=== PATIENT | female | born 1975 | race Caucasian/White ===

== ENCOUNTER 2016-12-18 19:58 | Emergency (ER) | payer OTHER ==
[2016-12-18 21:05] VITALS: BP 148/96
[2016-12-18] MEDS ORDERED: HYDROcodone/ACETAMIN 5-325 MG* 1 TAB PO ONE (22:44)
--- NOTE | 2016-12-18 22:47 | UC ---
Knee Pain HPI - HPI Summary HPI Summary: twisted right knee while skating tiffanie mcmullen tonight - History of Current Complaint Chief Complaint: EDExtremityLower Stated Complaint: KNEE INJURY Time Seen by Provider: 12/18/16 22:37 Hx Obtained From: Patient Hx Last Menstrual Period: IUD ?: No Onset/Duration: Sudden Onset, Lasting Hours, Still Present Severity Initially: Moderate Severity Currently: Moderate Location Of Injury: right knee medial pain Pain Intensity: 5 Pain Scale Used: 0-10 Numeric Character: Aching, Throbbing Aggravating Factor(s): Movement, Weight Bearing Alleviating Factor(s): Rest, Position, Cold Associated Signs And Symptoms: Positive: Negative Able to Bear Weight: Yes - was able to skate off the track - Allergies/Home Medications Allergies/Adverse Reactions: Allergies Allergy/AdvReac Type Severity Reaction Status Date / Time No Known Allergies Allergy Verified 12/01/15 16:02 PMH/Surg Hx/FS Hx/Imm Hx Previously Healthy: Yes - Surgical History Surgical History: Yes Surgery Procedure, Year, and Place: LT KNEE ARTHROSCOPIC (MENISCUS REPAIR). VAGINAL TEAR REPAIR. 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 Lives: With Family Alcohol Use: Occasionally Alcohol Amount: Every couple of weeks Substance Use Type: None Smoking Status (MU): Never Smoked Tobacco Review of Systems Constitutional: Negative Skin: Negative Eyes: Negative ENT: Negative Respiratory: Negative Cardiovascular: Negative Gastrointestinal: Negative Genitourinary: Negative Motor: Negative Neurovascular: Negative Musculoskeletal: Arthralgia - right knee medial pain Neurological: Negative Psychological: Negative All Other Systems Reviewed And Are Negative: Yes Physical Exam Triage Information Reviewed: Yes Appearance: Well-Appearing, Pain Distress, Obese Vital Signs: Initial Vital Signs Temp 99.1 F 12/18/16 20:15 Pulse 104 12/18/16 20:15 Resp 20 12/18/16 20:15 BP 149/91 12/18/16 20:15 Pulse Ox 96 12/18/16 20:15 Vital Signs Reviewed: Yes Eye Exam: Normal Eyes: Positive: Conjunctiva Clear ENT Exam: Normal ENT: Positive: Normal ENT inspection, Hearing grossly normal, Pharynx normal, TMs normal. Negative: Nasal congestion, Nasal drainage, Tonsillar swelling, Tonsillar exudate, Trismus, Muffled/hoarse voice Dental Exam: Normal Neck exam: Normal Neck: Positive: Supple, Nontender, No Lymphadenopathy Respiratory Exam: Normal Respiratory: Positive: Chest non-tender, No respiratory distress, No accessory muscle use Cardiovascular Exam: Normal Cardiovascular: Positive: RRR, Pulses Normal, Brisk Capillary Refill Musculoskeletal Exam: Normal Musculoskeletal: Positive: No Edema, Strength Limited @ - right knee, ROM Limited @ Neurological Exam: Normal Neurological: Positive: Alert, Muscle Tone Normal Psychological Exam: Normal Skin Exam: Normal Diagnostics - Radiology No standard instances Xray Interpretation: No Acute Changes Radiology Interpretation Completed By: ED Physician Knee Pain Course/Dx - Course Course Of Treatment: rice, luma, knee immoblizer, crutches, rice, pain control follow with ortho this week - Differential Dx/Diagnosis Differential Diagnosis/HQI/PQRI: Contusion, Fracture (Closed), Internal Derangement Of Knee, Sprain, Strain Provider Diagnoses: Right knee internal derangement Discharge - Discharge Plan Condition: Stable Disposition: HOME Prescriptions: Hydrocodone-Acetaminophen [Hydrocodone/Acetaminophen 5-325 mg] 1 tab PO Q6H PRN #12 tab MDD 4 PRN Reason: Pain Ibuprofen TAB* [Motrin TAB* 600 MG] 600 mg PO Q6H PRN #40 tab PRN Reason: pain Patient Education Materials: Knee Sprain (ED), Crutch Instructions (ED), DASH Eating Plan (ED), Hypertension (ED), RICE Therapy (ED), Knee Immobilizer (ED), Non Weight Bearing Activity (ED) Forms: *Work Release Referrals: [facility] [Provider Group] - 3 Days Susy Schneider MD [Primary Care Provider] - 2 Weeks
--- NOTE | 2016-12-19 08:59 | RAD ---
Indication: Right knee pain. 4 views of the right knee demonstrates no fracture or dislocation. No other bone or joint abnormality is noted. IMPRESSION: No fracture of the right knee is noted.
--- NOTE | 2016-12-19 22:57 | ED ---
Progress - Progress Note Progress Note: Patient called requested her work not includes the instructions for non-weight bearing light duty until cleared by ortho---This was done and faxed to her employer at [phone] Course/Dx - Course Course Of Treatment: dianelys, luma, knee immoblizer, crutches, rice, pain control follow with ortho this week - Diagnoses Provider Diagnoses: Internal derangement of knee
== END 2016-12-18 23:22 | disposition home or self-care (01) ==
LOC: ED 19:58
DX: M23.91 Unspecified internal derangement of right knee (principal)
CPT/HCPCS: 36415; 86703; 99282

== ENCOUNTER 2016-12-29 22:47 | Emergency (ER) | payer OTHER ==
[2016-12-30] MEDS ORDERED: Ibuprofen TAB* 800 MG PO ONE (01:45)
[2016-12-30] MEDS ORDERED: oxyCODONE/Acetamin 5/325 MG* TAB PO ONE (01:45)
--- NOTE | 2016-12-30 01:59 | ED ---
Lower Extremity - HPI Summary HPI Summary: Pt here w/ acute on chronic Rt knee pain. Was seen here last week after a rollerderby injury. Was seen in f/u w/ Dr. Sweet - dx'd w/ sprain and had an MRI - results reveal ACL tear. Pt has been wearing her immobilizer a times but mostly an PATRICK wrap as she reports it's been feeling a little better. Has been taking ibuprofen but needs another dose tonight. Tried vicodin w/o relief - better relief w/ percocet. Denies numbness, tingling, weakness. Pain was along medial aspect and behind knee when she initially injured. Tonight she has pain over front of knee as well. 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 - History of Current Complaint Chief Complaint: EDExtremityLower Stated Complaint: FALL/KNEE INJURY Time Seen by Provider: 12/30/16 01:38 Hx Obtained From: Patient Hx Last Menstrual Period: IUD Pain Intensity: 8 - Allergies/Home Medications Allergies/Adverse Reactions: Allergies Allergy/AdvReac Type Severity Reaction Status Date / Time No Known Allergies Allergy Verified 12/24/16 15:30 PMH/Surg Hx/FS Hx/Imm Hx Previously Healthy: Yes Endocrine/Hematology History: Denies: Hx Anticoagulant Therapy, Hx Blood Disorders, Hx Diabetes Cardiovascular History: Denies: Hx Hypertension, Hx Pacemaker/ICD History: Denies: Hx Renal Disease Sensory History: Denies: Hx Hearing Aid Psychiatric History: Denies: Hx Panic Disorder - Surgical History Surgery Procedure, Year, and Place: LT KNEE ARTHROSCOPIC (MENISCUS REPAIR). VAGINAL TEAR REPAIR. 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 [employer] Alcohol Use: Occasionally Alcohol Amount: Every couple of weeks Hx Substance Use: No Substance Use Type: Reports: None Hx Tobacco Use: No Smoking Status (MU): Never Smoked Tobacco Review of Systems Positive: no symptoms reported Musculoskeletal: Other - see HPI Skin: Negative Neurological: Negative Psychological: Normal All Other Systems Reviewed And Are Negative: Yes Physical Exam Triage Information Reviewed: Yes Vital Signs On Initial Exam: Initial Vitals Temp Pulse Resp BP Pulse Ox 98.8 F 81 20 166/100 96 12/29/16 22:50 12/29/16 22:50 12/29/16 22:50 12/29/16 22:50 12/29/16 22:50 Vital Signs Reviewed: Yes Appearance: Positive: Well-Appearing, Well-Nourished, Pain Distress Skin: Positive: Warm, Dry - no ecchymosis or erythema over affected area Head/Face: Positive: Normal Head/Face Inspection Eyes: Positive: EOMI ENT: Positive: Hearing grossly normal Respiratory/Lung Sounds: Positive: Breath Sounds Present Cardiovascular: Positive: Pulses are Symmetrical in both Upper and Lower Extremities. Negative: Leg Edema Left, Leg Edema Right Musculoskeletal: Positive: Limited @ - Rt knee limited ROM d/t pain - knee is TTP in general - moving ankle well but also elicits pain in knee; no gross laxity but exam limited d/t pain and awareness of pt's condition Neurological: Positive: Normal, Sensory/Motor Intact, Alert, Oriented to Person Place, Time Psychiatric: Positive: Normal Diagnostics - Vital Signs Vital Signs Temp Pulse Resp BP Pulse Ox 12/30/16 00:24 98.8 F 81 16 162/98 96 12/29/16 22:50 98.8 F 81 20 166/100 96 - Laboratory Lab Statement: Any lab studies that have been ordered have been reviewed, and results considered in the medical decision making process. Lower Extremity Course/Dx - Course Course Of Treatment: No XR performed as pt has known ACL tear here and mechanism of injury tonight is not indicative of fx or dislocation. Advised to wear brace at all times, non-weight bearing and f/u w/ Kee. If danger s/sx present, return to ED - Diagnoses Provider Diagnoses: Right ACL tear Discharge - Discharge Plan Condition: Stable Disposition: HOME Prescriptions: Ibuprofen TAB* [Motrin TAB* 600 MG] 600 mg PO Q6H PRN #40 tab PRN Reason: pain oxyCODONE/Acetamin 5/325 MG* [Percocet 5/325 TAB*] 1 tab PO Q6H PRN #20 tab MDD 4 PRN Reason: Pain Patient Education Materials: Knee Sprain (ED), Crutch Instructions (ED), ACL Injury (ED), Knee Immobilizer (ED) Referrals: Khurram Sweet MD [Medical Doctor] - Additional Instructions: You appear to have exacerbated your previous knee sprain/ligament tear. It is important that you wear your knee immobilizer and use crutches to avoid reinjury. You may remove immobilizer to gently stretch areas in a controlled environment. Rest, ice, elevate Ibuprofen 800mg every 8 hours with food for pain, swelling. Take percocet every 6 hours for break through pain. Follow-up with Dr. Sweet as directed. Call tomorrow to update about new injury in the event he wants to move you into a sooner appointment. *If you develop numbness, tingling, weakness, return to ED
[2016-12-30 02:11] VITALS: BP 165/109
== END 2016-12-30 02:19 | disposition home or self-care (01) ==
LOC: ED 22:47
DX: S83.511A Sprain of anterior cruciate ligament of right knee, initial encounter (principal); X58.XXXD Exposure to other specified factors, subsequent encounter; Y92.9 Unspecified place or not applicable
CPT/HCPCS: 99282; A9270-GY

== ENCOUNTER 2017-02-11 06:17 | Day surgery (SDC) | payer OTHER ==
[~2017-02-11 06:17] MED LIST: Buffered Lidocaine 0.9% SYRIN* 5 ML/SYR SYRINGE INTRADERM ONE; Famotidine IV* 10 MG/ML 2 ML (20 mg) IV ONE
[2017-02-11] MEDS ORDERED: Famotidine IV* 10 MG/ML 2 ML (20 mg) ONE (06:40)
[2017-02-11] MEDS ORDERED: Buffered Lidocaine 0.9% SYRIN* 5 ML/SYR SYRINGE ONE (06:40)
[2017-02-11] MEDS ORDERED: ceFAZolin 2 GM PREMIX (*) 50 ML IVPB ONE (06:40)
[2017-02-11] MEDS ORDERED: EPINEPHrine AMP 1 MG/ML ONE ×2 (07:09→07:16)
[2017-02-11] MEDS ORDERED: Bupivacaine 0.5% SDV PF* 30 ML VIAL ONE (07:10)
[2017-02-11] MEDS ORDERED: Midazolam* 1 MG/ML 5 ML VIAL (5 MG) ONE (07:11)
[2017-02-11] MEDS ORDERED: fentaNYL* 50 MCG/ML 2 ML VIAL (100 MCG VIAL) ONE ×2 (07:11→11:14)
[2017-02-11] MEDS ORDERED: KETAMINE HCL* 50 MG/ML 10 ML VIAL ONE (07:11)
[2017-02-11] MEDS ORDERED: Morphine INJ* 10 MG/ML 1 ML CARPUJECT ONE ×2 (07:44→11:14)
[2017-02-11] MEDS ORDERED: PROCHLORPERAZINE INJ 5 MG/ML 2 ML VIAL ONE ×2 (07:45→13:10)
[2017-02-11] MEDS ORDERED: Ondansetron INJ* 2 MG/ML VIAL ONE (07:45)
[2017-02-11] MEDS ORDERED: Phenylephrine INJ* 10 MG/ML 1 ML VIAL (10 MG) ONE (07:45)
[2017-02-11] MEDS ORDERED: Propofol* 10 MG/ML 20 ML BTL IV PUSH ONE (07:45)
[2017-02-11] MEDS ORDERED: Ketorolac INJ* 30 MG/ML 1 ML VIAL ONE (07:45)
[2017-02-11] MEDS ORDERED: Lidocaine 2% PF * 5 ML VIAL ONE (07:45)
[2017-02-11] MEDS ORDERED: Dexamethasone IV* 4 MG/ML 1 ML (4 MG) ONE (07:45)
[2017-02-11] MEDS ORDERED: EPHEDrine (Pressors)* 50 MG/ML VIAL ONE (07:59)
[2017-02-11] MEDS ORDERED: PROCHLORPERAZINE INJ 5 MG/ML 2 ML VIAL IV PRN (11:06)
[2017-02-11] MEDS ORDERED: Scopolamine 1.5 mg* PATCH TRANSDERM PRN (11:06)
[2017-02-11] MEDS ORDERED: oxyCODONE/Acetamin 5/325 MG* TAB ONE (11:14)
[2017-02-11] MEDS: Morphine INJ* 2 MG/ML 1 ML CARPUJECT IV PRN ×3 (11:22→12:25)
[2017-02-11] MEDS: fentaNYL* 50 MCG/ML 2 ML VIAL (100 MCG VIAL) IV PRN ×4 (11:23→13:13)
[2017-02-11] MEDS: oxyCODONE/Acetamin 5/325 MG* TAB PO PRN ×2 (11:23→11:25)
[2017-02-11] MEDS ORDERED: Scopolamine 1.5 mg* PATCH ONE (13:10)
[2017-02-11 15:34] VITALS: BP 130/87
--- NOTE | 2017-02-12 10:32 | OP ---
OPERATIVE REPORT: DATE OF OPERATION: 02/11/17 DATE OF : 73 SURGEON: Jarett Cárdenas MD. INSURANCE BROKER: VIRY Rene. A physician web assistant was required for the length of the procedure for retraction and instrumentation. ANESTHESIOLOGIST: Keith Rendon MD. ANESTHESIA: General anesthesia. Postoperatively, the patient received a femoral nerve block, regional anesthetic in the PACU. PRE-OP DIAGNOSES: 1. Right knee anterior cruciate ligament tear 2. Possible right knee medial meniscus tear. POST-OP DIAGNOSES: 1. Right knee anterior cruciate ligament tear 2. No clear medial meniscus tear, right knee. OPERATIVE PROCEDURE: 1. Right knee antroscopic ACL reconstruction with bone- patella-bone allograft. 2. Right knee arthroscopic anterior synovectomy. ANTIBIOTICS: Ancef 2 g IV. IV FLUIDS: 1700 cc crystalloid. TOURNIQUET TIME: A total of 114 minutes at 300 mmHg. The patient's tourniquet was up for 49 minutes. It was down for 18 minutes. It was then up for 65 minutes. SPECIMENS: None. COMPLICATIONS: None. ESTIMATED BLOOD LOSS: Minimal. IMPLANTS: Bone-patellar tendon-bone allograft. Mitek Michelle biocomposite anchors, 9 x 23 mm in the femur and 10 x 23 mm in the tibia. FiberWire sutures #5 three stands used for the graft. 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 She was referred to me by Dr. Sweet and had an MRI, which showed an ACL tear. There was some signal change in the posterior horn of the medial meniscus suspicious for a tear and the patient acknowledged a new buckling incident after that MRI had been obtained. See history and physical for full details. Prior to the procedure, the patient and I spoke about benefits, risks, and potential complications of the procedure. Risks and complications of the procedure included bleeding, infection, nerve or blood vessel injury, blood clot, knee arthritis, ACL graft rupture, meniscus tear, knee stiffness, knee pain, and osteoarthritis. DESCRIPTION OF PROCEDURE: Preoperative written consent was obtained. Operative extremity was marked in the preoperative holding. Patient did not yet have physical therapy appointment scheduled for postoperatively and I told her to telephone and make an appointment from preoperative holding if not come later in the afternoon for Tuesday, 3 days from surgery at the latest. The patient was taken back to the operating room and placed supine on the operating room table. The patient was sedated and intubated. A right proximal thigh tourniquet was placed, but yet elevated. A lateral post was placed on the side of the table. The right lower extremity was prepped including the foot with a ChloraPrep stick. The right lower extremity was draped. Surgical time-out was performed. An Esmarch was applied and the tourniquet was elevated to 300 mmHg. An anterolateral knee arthroscopy portal was established using standard technique. Diagnostic arthroscope was commenced. Entered patellofemoral compartment, no clear lesions there. Advanced to the medial compartment of the knee. There was some undulation, some looseness to the posterior horn of the medial meniscus visible, but no tear visible. I wanted to first evaluate the medial meniscus. I established an anteromedial knee arthroscopy portal under direct visualization with my goal to be perfect instrumentation into the medial compartment. I placed a probe into the posterior horn of the medial meniscus vicinity. I probed the undersurface and the over- surface. No clear tear was palpable. There was some clear undulation and when I pulled it hard enough it pulled into the joint somewhat; however, there was no clear break in the meniscal tissue palpable or visible or a break between the meniscus and the capsule. Therefore, I decided that there was no clear tear, certainly no clear unstable tear and that I would forego a repair. Continuing my diagnostic arthroscopy, I advanced to the intracondylar notch. I debrided some anterior synovitis to visualize the ACL better. There was some clear ACL tissue visible, unclear if it was intact or not at this point. There was some significant erythema about some of its tissues. I then proceeded to the lateral compartment where there was no clear articular cartilage or meniscus injury. I returned to the intracondylar notch. Before turning on my shaver, I probed the ACL both with an arthroscopic probe and with the shaver, probing bluntly. I soon visualized shredded midsubstance and proximal ACL tissue. At this point , I decided that the ACL was fully torn. I asked for the allograft to be thawed. I next turned the arthroscopic shaver on and debrided the ACL this instantly proximally and distally took some more time with debriding. At this point, the [facility] knee positioner was applied to the table for stability and the knee was placed in it. As the graft was thawing I debrided the lateral wall of the intracondylar notch. I performed a notchplasty, opening up the notch nicely for my graft. I debrided the ACL tissue back proximally and distally. I then dropped the tourniquet and went to the back table to prepare the allograft. I had a pre-contoured [id number] allograft. I used bone "smushers" to slightly reduce the diameter of the bone plugs. I debrided a little bit of the end of the patellar bone plugs. I sized my patellar bone plug to 23 mm. The tibial bone plug was at 28 mm and I kept it at that length. I next placed sutures through my graft, once suture proximally and two distally. I used FiberWire #5 suture. As has become my custom with one stitch proximal and one stitch distal, I placed a two whipstitches up and two whipstitches down the patellar tendon itself before placing the sutures through the bone plugs. I used a marker to ed these bone plugs and then I tensioned the graft with a moist sponge placed overhead. I next returned to the knee. Esmarch was applied and tourniquet was elevated. I next placed a Nordman awl to the 10:30 position with the knee in 90 degrees of flexion. It should be noted that prior to my debridement of intracondylar notch, I created an accessory anteromedial portal, established with the knee in over 90 degrees of flexion and placed inferior and further medial such that I would have an excellent trajectory for my eventual femoral tunnel creation. After having made my hole with the Nordman awl with the knee in the 90 degrees flexion, I next maximally flexed the knee, which in the case of this woman was only to perhaps to 120 degrees of flexion. At 120 degrees of flexion, I placed a 7 mm around the back of drill guide on the posterior aspect of the femur. I placed my Beath pin. Next, I measured with an arthroscopic probe and confirmed that I had a nice wall posterior to the Beath pin of 5 mm or more. I carefully entered the drill bit, acorn drill into the knee and created a 10 mm tunnel. I took photographs from both the anterolateral and the accessory anteromedial portal of my tunnel. I shaved up the detritus from that tunnel after having removed the Beath pin and drill. I returned the knee to 90 degrees of flexion. I studied the ACL tissue footprint. I debrided a bit a VAPR. I identified the exact central point between the medial and lateral tibial spines. I located the anterior horn of the lateral meniscus. I placed my tibial pin guide at 55 degrees and I placed it where I wanted to drill to, inside the knee. I made a longitudinal incision distally, over the the anteromedial proximal lower leg. I did so with a knife through the skin and debrided through the superficial subcutaneous tissue with a knife as well. I dissected through deep subcutaneous tissue and fascia with scissors to get down to bone. I placed a pin with my ACL drill guide. I then drilled with a 10 mm reamer. A large curette was placed over the wire tip inside the knee for safety. Instrumentation was removed. I debrided the detritus with an arthroscopic shaver. A passing suture, 2.0 in caliber was placed through the femoral and tibial tunnels. I used this to pass my graft. I placed my graft and then tapped and placed a 9 x 23 mm Michelle biocomposite screw just anterior to the graft in the femoral tunnel facing the narrow side of the graft. I got excellent squeak of the screw against bone. Next, I fully extended the leg, the knee. I had retractors placed and web assistant placed a posterior drawer force on the knee. I tapped and placed a screw just posterior to the graft in the tibia. This led the graft to the very prominent. I measured 12 mm of the graft prominent to the tibia. Therefore, I decided to replace this biocomposite screw. I removed the screw. This screw was in excellent shape. I confirmed with Ahometo that I could replace the screw. I replaced the graft posterior in the hole. Next, I re-tapped anteriorly and placed that 10 x 23 mm biocomposite screw anterior in the tibial tunnel. I got squeaking confirming good fit. This was placed with the posterior drawer maneuver and excellent tension on the graft. I did a Nury and anterior drawer test, which confirmed excellent fixation of the graft. I visualized the ACL graft with an arthroscope from full flexion to full extension and it appeared taut and well placed. I cut the suture end. Irrigation. Closure of the longitudinal incision with some [id number] and simple stitches deep of subcutaneous and fascial tissue with Vicryl 0 suture. Closure of the subcutaneous tissue with buried simple stitches using Vicryl 2-0 suture. Closure of all skin incisions with nylon 4-0 suture. The longitudinal incision had a running stitch while the others had [id number] stitches. Xeroform, 4x4s, ABDs, sterile Webril. Harvinder bandage from foot to proximal thigh. Cooling unit to the knee. Knee brace locked in extension. The patient was awakened and extubated. DISPOSITION: The patient had some pain in the PACU. The anesthesiologist asked if he would like me to place a femoral nerve block. I did. This nerve block was placed and the patient was much more comfortable. The patient will receive aspirin 325 mg p.o. b.i.d. x2 weeks for DVT prophylaxis. She will receive Keflex x7 days for infection prophylaxis. She will receive Percocet as needed for pain control. She will follow up in 10 to 14 days postoperatively in clinic. She will do physical therapy starting immediately as soon as possible to get that knee moving with range of motion exercises and quadriceps strengthening. [id number]/CPS #: [id number] MTDD
[2017-02-14] MEDS ORDERED: Scopolomine PATCH Remove* 1 NOTE MISC PATCH OFF ONE (11:09)
== END 2017-02-11 15:39 | disposition home or self-care (01) ==
LOC: OR 06:17
PROVIDERS: ATTEND Orthopaedic Surgery
DX: S83.511A Sprain of anterior cruciate ligament of right knee, initial encounter (principal); X50.9XXA Other and unspecified overexertion or strenuous movements or postures, initial encounter; Y93.51 Activity, roller skating (inline) and skateboarding; G89.18 Other acute postprocedural pain
CPT/HCPCS: 81025; A9270-GY; C1713; C1776; J0171; J0690; J0780; J1100; J1885; J2250; J2270; J2405; J2704; J3010

== ENCOUNTER 2018-04-01 16:21 | Emergency (ER) | payer OTHER ==
[2018-04-01 16:49] VITALS: BP 154/89
--- NOTE | 2018-04-01 17:21 | UC ---
Knee Pain HPI - HPI Summary HPI Summary: Walking into work at 7 am and slipped on wet floor. Left foot slipped, right knee buckled behind her. C/O right knee, right hip and left buttock pain. Pain in back radiating up spine from low thoracic into the shoulder blades. - History of Current Complaint Chief Complaint: UCLowerExtremity Stated Complaint: WC-RIGHT KNEE,HIP,BACK PAIN Time Seen by Provider: 04/01/18 17:14 Hx Obtained From: Patient Hx Last Menstrual Period: 03/19/18 ?: No Onset/Duration: Sudden Onset Severity Initially: Mild Severity Currently: Moderate Pain Intensity: 4 Aggravating Factor(s): Weight Bearing, Prolonged Standing, Stairs Alleviating Factor(s): Rest Associated Signs And Symptoms: Positive: Numbness - already from the ACL surgery Able to Bear Weight: Yes - Allergies/Home Medications Allergies/Adverse Reactions: Allergies Allergy/AdvReac Type Severity Reaction Status Date / Time No Known Allergies Allergy Verified 04/01/18 16:46 PMH/Surg Hx/FS Hx/Imm Hx Cardiovascular History: Hypertension - recently taken off meds with ACEI cough Other History Of: Negative For: Anticoagulant Therapy - Surgical History Surgical History: Yes Surgery Procedure, Year, and Place: 2002 LT KNEE ARTHROSCOPIC (MENISCUS REPAIR) [place]. 1995 VAGINAL TEAR REPAIR [facility]. 2004 PARTIAL FOR ECTOPIC [facility]. 2017 right acl repair - Family History Known Family History: Positive: Hypertension Negative: Diabetes - Social History Occupation: Employed Full-time Lives: With Family Alcohol Use: Rare Alcohol Amount: 1-3 DRINKS/MONTH Substance Use Type: None Smoking Status (MU): Never Smoked Tobacco Have You Smoked in the Last Year: No Household Exposure Type: Cigarettes Review of Systems Musculoskeletal: Arthralgia - right knee, right hip, Myalgia - low back pain. Is Patient Immunocompromised?: No All Other Systems Reviewed And Are Negative: Yes Physical Exam Triage Information Reviewed: Yes Appearance: Well-Appearing, No Pain Distress - at rest, Pain Distress - severe with exam, Obese Vital Signs: Initial Vital Signs Temp 96.9 F 04/01/18 16:42 Pulse 81 04/01/18 16:42 Resp 18 04/01/18 16:42 BP 154/89 04/01/18 16:42 Pulse Ox 100 04/01/18 16:42 Vital Signs Reviewed: Yes Eyes: Positive: Conjunctiva Inflamed - after crying with exam Neck exam: Normal Respiratory Exam: Normal Cardiovascular Exam: Normal Musculoskeletal: Positive: ROM Limited @ - Right knee with tenderness MCL and LCL. No laxity on stress. Positive pain and click with McMurrays testing., Other : - Back with spinous process tenderness from the Mid-thoracic to the sacrum. Tender over the right SI joint. Right hip tender over the greater trochanter. Neurological: Positive: Other: - Decreased sensation over the right knee around the surgical scars. Psychological Exam: Normal Skin Exam: Normal Diagnostics - Radiology No standard instances Radiology Interpretation Completed By: ED Physician Summary of Radiographic Findings: No fracture knee or back. Knee Pain Course/Dx - Differential Dx/Diagnosis Differential Diagnosis/HQI/PQRI: Contusion, Dislocation, Fracture (Closed), Sprain, Strain Provider Diagnoses: Acute right knee meniscus tear. Acute sacroiliitis. Contusion left buttock. Right hip pain Discharge - Sign-Out/Discharge Documenting (check all that apply): Patient Departure All imaging exams completed and their final reports reviewed: No - Discharge Plan Condition: Stable Disposition: HOME Patient Education Materials: Meniscus Tear (ED), Contusion in Adults (ED), Sacroiliitis (ED) Forms: *Work Release Referrals: Nehal Cruz MD [Primary Care Provider] - Additional Instructions: Follow up with your orthopedist about the knee injury. Please see a chiropractor for the back pain. Ice for 48 hours then heat. - Billing Disposition and Condition Condition: STABLE Disposition: Home
--- NOTE | 2018-04-01 18:31 | RAD ---
INDICATION: Injury, low back pain. COMPARISON: There are no relevant prior studies available for comparison. TECHNIQUE: 5 views of the lumbar spine were obtained including lateral, oblique, AP and a coned-down lateral view of the lumbar sacral junction. FINDINGS: There is a mild lumbar scoliosis convex toward the left side. In addition there is mild anterolisthesis of L4 on L5 of approximately 4 mm. No fracture is seen. There is mild diffuse degenerative disc disease. IMPRESSION: 1. NO EVIDENCE FOR FRACTURE. 2. MILD GRADE 1 ANTERIOR SPONDYLOLISTHESIS AT THE L4-L5 LEVEL AND MILD DIFFUSE DEGENERATIVE DISC DISEASE. R0
--- NOTE | 2018-04-01 18:33 | RAD ---
INDICATION: Right knee injury. TECHNIQUE: 4 views of the right knee were obtained. FINDINGS: The patient is status post anterior cruciate ligament repair. The bones are normal alignment. No joint effusion or fracture is seen. Joint spaces appear maintained. IMPRESSION: NO EVIDENCE FOR FRACTURE. R0
--- NOTE | 2018-04-02 07:16 | UC ---
- Progress Note Progress Note: Xray report of L spine and knee reviewed: W NO fracture of the knee No fracture of spine, Grade 1 anterior spondylolisthesis of the l spine. RN inform patient of the findings and recommend follow up with orthopedics. Discharge - Sign-Out/Discharge Documenting (check all that apply): Post-Discharge Follow Up All imaging exams completed and their final reports reviewed: Yes - Discharge Plan Condition: Stable Disposition: HOME Patient Education Materials: Contusion in Adults (ED), Sacroiliitis (ED), Meniscus Tear (ED) Forms: *Work Release Referrals: Nehal Cruz MD [Primary Care Provider] - Additional Instructions: Follow up with your orthopedist about the knee injury. Please see a chiropractor for the back pain. Ice for 48 hours then heat. - Billing Disposition and Condition Condition: STABLE Disposition: Home
== END 2018-04-01 18:34 | disposition home or self-care (01) ==
LOC: UCCORT 16:21
DX: S83.206A Unspecified tear of unspecified meniscus, current injury, right knee, initial encounter (principal); M46.1 Sacroiliitis, not elsewhere classified; S30.0XXA Contusion of lower back and pelvis, initial encounter; M25.551 Pain in right hip; W01.0XXA Fall on same level from slipping, tripping and stumbling without subsequent striking against object, initial encounter; Y92.9 Unspecified place or not applicable
CPT/HCPCS: 72110; 99211; G0463

== ENCOUNTER 2018-10-24 05:51 | Inpatient (IN) | payer OTHER ==
[~2018-10-24 05:51] MED LIST changes: -Buffered Lidocaine 0.9% SYRIN* 5 ML/SYR SYRINGE INTRADERM ONE; +Buffered Lidocaine 1% SYRIN* 1 ML/SYRINGE INTRADERM ONE; -Famotidine IV* 10 MG/ML 2 ML (20 mg) IV ONE
[2018-10-24] MEDS ORDERED: Lactated Ringers 1000 ML Bag* 1,000 ML IV SCH ×2 (06:00→12:00)
[2018-10-24] MEDS ORDERED: ceFAZolin 2 GM PREMIX in ORs 2 GM/50 ML BAG IVPB ONE (06:53)
[2018-10-24] MEDS ORDERED: Buffered Lidocaine 1% SYRIN* 1 ML/SYRINGE INTRADERM ONE (06:54)
[2018-10-24] MEDS ORDERED: Midazolam* 1 MG/ML 2 ML VIAL (2 MG) ONE (06:58)
[2018-10-24] MEDS ORDERED: Succinylcholine* 20 MG/ML 10 ML VIAL ONE (06:58)
[2018-10-24] MEDS ORDERED: Propofol* 10 MG/ML 20 ML BTL ONE (06:58)
[2018-10-24] MEDS ORDERED: Lidocaine 2% PF * 5 ML VIAL ONE (06:58)
[2018-10-24] MEDS ORDERED: Propofol* 500 MG/50 ML BTL ONE ×2 (06:58→08:46)
[2018-10-24] MEDS ORDERED: fentaNYL* 50 MCG/ML 2 ML VIAL (100 MCG VIAL) ONE (06:59)
[2018-10-24] MEDS ORDERED: Remifentanil* 2 MG VIAL ONE ×2 (06:59→08:58)
[2018-10-24] MEDS ORDERED: KETAMINE HCL* 50 MG/ML 10 ML VIAL ONE (07:02)
[2018-10-24] MEDS ORDERED: Lidocaine 1% MPF wEPI 200,000* 30 ML SDV ONE (07:03)
[2018-10-24] MEDS ORDERED: Bacitracin INJECTION* 50,000 UNITS ONE ×2 (07:04→10:33)
[2018-10-24] MEDS ORDERED: Thrombin 5,000 UNITS* 1 APPLIC KIT - topical use - TOPICAL ONE (07:04)
[2018-10-24] MEDS ORDERED: Bupivacaine 0.25% W/EPI* 10 ML SDV ONE (08:14)
[2018-10-24] MEDS ORDERED: Propofol* 200 ML ONE (08:47)
[2018-10-24] MEDS ORDERED: Phenylephrine 10 MG/ML VIAL* 1 ML VIAL ONE ×2 (08:55→09:01)
[2018-10-24] MEDS ORDERED: Naloxone* 0.4 MG/ML 1 ML VIAL IV PRN (09:30)
[2018-10-24] MEDS ORDERED: oxyCODONE TAB* 5 MG TAB PO PRN (09:30)
[2018-10-24] MEDS ORDERED: DiMENhydriNATE IV* 50 MG/ML VIAL IV PUSH PRN (09:30)
[2018-10-24] MEDS ORDERED: HYDROmorphone INJ1* 1 MG/ML SYRINGE IV PRN (09:30)
[2018-10-24] MEDS ORDERED: Dexamethasone IV* 4 MG/ML 1 ML (4 MG) ONE (11:04)
[2018-10-24] MEDS ORDERED: Acetaminophen IV 1GM/100ML * 100 ML ONE (11:04)
[2018-10-24] MEDS ORDERED: Ketorolac INJ* 30 MG/ML 1 ML VIAL ONE (11:04)
[2018-10-24] MEDS ORDERED: Metoclopramide IV* 5 MG/ML 2 ML VIAL ONE (11:04)
[2018-10-24] MEDS ORDERED: Ondansetron INJ* 2 MG/ML VIAL ONE ×2 (11:04→14:04)
[2018-10-24] MEDS ORDERED: HYDROmorphone INJ1* 1 MG/ML SYRINGE ONE ×2 (11:18→12:54)
[2018-10-24] MEDS ORDERED: Ondansetron INJ* 2 MG/ML VIAL IV PRN (11:49)
[2018-10-24] MEDS ORDERED: Acetaminophen TAB* 325 MG PO PRN (11:49)
[2018-10-24] MEDS ORDERED: Magnesium Hydroxide LIQ* 30 ML UDC PO PRN (11:49)
[2018-10-24] MEDS ORDERED: oxyCODONE TAB* 5 MG TAB ONE (12:54)
--- NOTE | 2018-10-24 13:15 | OP ---
DATE OF OPERATION: 10/24/18 - ROOM #335 DATE OF : 73 SURGEON: Hawa Pritchard MD ASSISTANTS: VIRY Perez; VIRY Walters. The case was done with the assistance of surgical PA because of the complexity of the case. ANESTHESIA: General. PRE-OP DIAGNOSIS: Degenerative disk disease, L4-5 with spondylolisthesis. POST-OP DIAGNOSIS: Degenerative disk disease, L4-5 with spondylolisthesis. OPERATIVE PROCEDURE: The patient underwent right L4-5 minimally invasive TLIF with iliac crest bone graft from a separate incision, DBX, expandable interbody PEEK cage, bilateral pedicle screws L4-L5 with navigation and intraoperative monitoring. ESTIMATED BLOOD LOSS: 30 mL. COMPLICATIONS: None. SUMMARY: The patient is a very pleasant 43-year-old female with complaints of back pain radiating to the right lower extremity. The patient had MRI findings consistent with degenerative disk disease at L4-5 and mobile spondylolisthesis at L4-5. She failed conservative modalities and she was offered the option of surgical intervention. After explaining all expectations, limitations, and possible complications of the procedure to the patient and her significant other with complications including, but not limited to bleeding, infection, risk of injury to adjacent structures, coma, paralysis, , stroke, blindness , cancer, instability, hardware failure, adjacent level disease, pseudoarthrosis , spinal fluid leak, injury to bladder, bowel or intraabdominal contents, loss of bladder or bowel control, need for tracheostomy or gastrostomy, anesthesia risks, need for additional procedures in the future; the patient was agreeable to proceed with surgery and informed consent was obtained. The patient understood that her condition may not improve and in fact may get worse after surgery and that she may need to have additional procedures in the future. She also understood that the operative plan may be modified according to intraoperative findings and conditions and the case may be abandoned or done in more than 1 stages. She understands that she may need prolonged ICU stay, need for tracheostomy or gastrostomy, prolonged rehabilitation, or prolonged hospitalization. DESCRIPTION OF PROCEDURE: The patient was brought to the operating room and was placed under general anesthesia by the anesthesia team. She was carefully positioned prone on the Savage table and all bony prominences were meticulously padded. Her skin was prepped and draped in the standard fashion. After appropriate surgical pause and patient identification, a small incision was performed over the left iliac crest. The Corex needle was used to harvest bone graft and through the same stab wound incision, the navigation star was secured in place. Intraoperative O-arm imaging was obtained and the patient's data was transferred in the navigation platform with assistance of stereotactic navigation. The trajectories of the pedicle screws at L4 and L5 were marked on the skin as well as trajectory of the tubular retractor placement. Two paramedian incisions were then marked on the skin and infiltrated with local anesthetic using Marcaine. The incisions were performed with #10 surgical blade and this was advanced with Bovie cautery. The pedicles of L4 and L5 bilaterally were cannulated with high-speed drill and awl-tip tap and HackHands ATS screws were inserted with 6.5 x 45 mm screws for the L5 and 6.5 x 40 mm for the L4. Then, attention was brought to inserting the METRx retractor over a series of dilators through an opening in the dorsal fascia performed with #10 surgical blade. A METRx tubular retractor was inserted and operative microscope was brought into the field. The lamina of the L4 on the right was exposed as well as the L4-5 medial facet. High-speed drill was used to fashion partial hemilaminectomy and medial facetectomy, which was completed with Kerrison punches. The ligamentum flavum was gently retracted and the lateral part of the thecal sac as well as the L5 nerve root was readily identified. A foraminotomy was performed at that time and after retracting medially with a nerve root retractor, the disk space was identified and exposed. A #15 surgical blade was used to incise the annulus fibrosus and diskectomy and preparation of the disk and plate was performed with a series of dilators, pituitary rongeurs, and curettes. An 8 mm x 28 expandable PEEK Elevate Medtronic cage was then filled with locally harvested bone graft during the laminectomy phase as well as DBX as well as the autologous iliac crest bone graft and the disk space was filled with a mixture of the bone graft and the Elevate cage was then inserted and expanded appropriately. The tubular retractor was then gently removed after confirmation of meticulous hemostasis, copious irrigation, and meticulous inspection. The dorsal fascia opening was approximated with interrupted 0 Vicryl sutures. Two cobalt chrome rods were inserted through the same stab wound incisions and secured in place with screw head caps. Second O-arm imaging was then obtained, which confirmed excellent placement of all hardware. The screw head caps were secured in place and the extension towers as well as the navigation star pin were then removed. After copious irrigation, confirmation of meticulous hemostasis and meticulous inspection, the wounds were closed by layers with 0 interrupted Vicryl suture to approximate the dorsal fascia and the subcutaneous tissue while the superficial subcutaneous tissue was approximated with inverted interrupted 2-0 Vicryl sutures. The skin was covered with Dermabond. At the end of the procedure, all counts were reported to be correct. The patient remained hemodynamically stable throughout the case. Intraoperative electrophysiological monitoring remained stable throughout the case. The patient was then turned supine, was extubated and was transferred to Recovery in excellent condition. The case was done with assistance of surgical PA because of the complexity of the case. [id number]/[facility] #: [id number] FAWN
[2018-10-24] MEDS: oxyCODONE/Acetamin 5/325 MG* TAB PO PRN ×2 (14:37→20:40)
--- NOTE | 2018-10-24 17:00 | CONS ---
CONSULTATION REPORT: DATE OF CONSULTATION: 10/24/18 PRIMARY CARE PROVIDER: Dr. Nehal Cruz REQUESTING PHYSICIAN IN CONSULTATION: Dr. Hawa Pritchard. ATTENDING PHYSICIAN: Ute Espinosa MD (dictated by VIRY Alfredo) REASON FOR CONSULTATION: Co-medical management. HISTORY OF PRESENT ILLNESS/HOSPITAL COURSE: Ms. Casillas is a 43-year-old female with past medical history of degenerative disc disease, L4-5 spondylolisthesis, who presented to [facility] today for an elective L4 to L5 lumbar fusion. She has seen in her hospital room postoperatively. She states she is feeling well. She describes her pain as a 5/10, although she is able to move. She has a Up in place. She is tolerating a small amount of p.o. food having just eaten a christopher cracker. The patient denies chest pain, shortness of breath , fever, cough, chills, abdominal pain, nausea, vomiting, diarrhea, constipation. She describes some right leg numbness/tingling, which she says is always present. Otherwise, she has no numbness and tingling elsewhere. She has no change in vision, headache, pain in the extremities, or difficulty with movement. PAST MEDICAL HISTORY: 1. Degenerative disc disease, L4-L5 spondylolisthesis, radiculopathy. 2. Hypertension. 3. Hypothyroidism. 4. GERD. 5. Depression. 6. Allergies. MEDICATIONS: 1. Acetaminophen 1000 mg p.o. q.4 hours p.r.n. pain. 2. Biotin 10,000 mcg p.o. q.a.m. 3. Bupropion 300 mg p.o. q.a.m. 4. Calcium 1200 mg p.o. q.a.m. 5. Cetirizine 1 tab p.o. q.a.m. 6. Cholecalciferol 5000 units p.o. q.a.m. 7. Hydrocodone/acetaminophen 10-325 one tab p.o. at bedtime p.r.n. pain. 8. Levothyroxine 50 mcg p.o. q.a.m. 9. Metoprolol succinate 25 mg p.o. q.p.m. 10. Naproxen 220 mg p.o. q.a.m. p.r.n. pain. 11. Omeprazole 20 mg p.o. q.a.m. ALLERGIES: LISINOPRIL, coughing; MORPHINE, GI upset. PAST SURGICAL HISTORY: Right ACL, left meniscus, partial due to ectopic , perineal tear. FAMILY HISTORY: Positive for thyroid, lung and breast cancer. Positive for diabetes mellitus. Negative for heart disease, CVA. SOCIAL HISTORY: The patient does not and has never smoked. She drinks approximately 2 alcoholic drinks per week. She lives with her boyfriend. 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 In the event that she is unable to make her own medical decision, she has appointed her boyfriend, Jovanny Hinton, to be her surrogate decision maker. REVIEW OF SYSTEMS: A 10-point review of systems was performed, and all the pertinent positives and negatives are in the HPI, all other systems are negative. PHYSICAL EXAMINATION: General: Ms. Casillas is a well-developed, well- nourished, obese middle-aged woman who is lying flat in bed. She appears to be in no acute distress. She appears comfortable. She is pleasant and cooperative. Vital Signs: Temperature 98.3 oral, heart rate 79, respiratory rate 18, oxygen saturation 94% on room air, blood pressure 138/73. HEENT: Visual singleton are grossly intact. PERRL. EOMI. There is no scleral icterus. Hearing is grossly intact. Oral mucous membranes are moist. There are no lesions. Pharynx is clear. Cardiac: Regular rate and rhythm with S1, S2 present. No murmurs, rubs, clicks, or gallops. There is no JVD. Respiratory: Symmetrical chest expansion without use of accessory muscles. The lungs are clear to auscultation bilaterally without wheeze, rhonchi or rales. Abdomen: Obese. Bowel sounds noted in all quadrants. The abdomen is soft. There is no tenderness to palpation. Musculoskeletal: The patient has surgical incision sites lateral to the lumbar spine on either side. They are dressed with a clean , dry and intact dressing. Extremities: Skin is warm and smooth bilaterally. There is no clubbing, cyanosis, or edema. Radial and pedal pulses are palpable. The patient is able to move all of her extremities. Sensation is intact distally. Neuro: The patient is awake. She is alert and oriented x3. Cranial nerves are grossly intact. ASSESSMENT AND PLAN: Mrs. Casillas is a 43-year-old female with past medical history of degenerative disc disease and radiculopathy, hypertension, hypothyroidism, gastroesophageal reflux disease, depression, who presented to [facility] today for an elective transforaminal lumbar interbody fusion of the L4 to L5. She will be admitted inpatient for: 1. L4 to L5 TLIF, management per Neurosurgery. 2. Hypertension. Continue metoprolol with hold parameters. 3. Hypothyroidism. Continue levothyroxine 25. 4. Gastroesophageal reflux disease. The patient will be placed on pantoprazole. 5. Depression. Wellbutrin 300 daily will be continued. 6. Allergies. Continue cetirizine 10. 7. Code status. Full code. 8. DVT prophylaxis. Per Neurosurgery, the patient has been placed on SCDs. TIME SPENT: Approximately 35 minutes were spent on this consultation; greater than half that time was spent with the patient obtaining history, performing physical, and reviewing the plan of care. This case has been reviewed with my attending, Dr. Espinosa, who is in agreement with the plan of care. VIRY ALFREDO [id number]/[facility] #: [id number] FAWN
[2018-10-24] MEDS ORDERED: Metoprolol Succinate XL TAB* 25 MG PO SCH ×2 (18:00)
[2018-10-24] MEDS ORDERED: Scopolamine 1.5 mg* PATCH TRANSDERM PRN (18:43)
[2018-10-25] MEDS: oxyCODONE/Acetamin 5/325 MG* TAB PO PRN ×3 (03:07→13:36)
[2018-10-25] MEDS ORDERED: Levothyroxine TAB* 50 MCG TAB PO SCH (06:00)
[2018-10-25 06:07] LABS: Hematocrit 37 % (35-47); Hemoglobin 12.6 g/dL (12.0-16.0); Mean Corpuscular HGB Conc 34 g/dL (31-36); Mean Corpuscular Hemoglobin 29 pg (27-31); Mean Corpuscular Volume 85 fL (80-97); Mean Platelet Volume 8.1 fL (7.4-10.4); Platelet Count 306 10^3/uL (150-450); Red Blood Count 4.38 10^6 /uL (3.70-4.87); Red Cell Distribution Width 14 % (10.5-15); White Blood Count 15.1 10^3/uL (3.5-10.8)
[2018-10-25 06:42] LABS: BUN/Creatinine Ratio 15.1 (8-20); Calcium 8.6 mg/dL (8.6-10.3); EGFR African American 104.8 (>60); EGFR Non-African American 86.6 (>60)
--- NOTE | 2018-10-25 08:02 | PN ---
Progress Note - Progress Note Date of Service: 10/25/18 SOAP: Subjective: 43 y/o female post right TLIF POD # 1, she has been stable overnight, pain has been controlled with medications, except for an occasional spasm. She has been up ambulating, denies any fever, chills or nausea. Currently has rodriguez was not removed in PACU, still has not voided without catheter. Her radicular pain has resolved, at this time she has no complaints. Objective: [ Vital Signs - 8 hr 10/25/18 10/25/18 10/25/18 03:06 03:07 05:46 Temperature 99.1 F Pulse Rate 80 Respiratory 16 16 16 Rate Blood Pressure 119/65 (mmHg) O2 Sat by Pulse 98 Oximetry Gneral: laying in bed comfortable NAD Nuero: GCS 15, A&O x 3, CN I - XII intact, Motor strength 5/5 in all extremities , sensation intact. Assessment: 43 y/o female post right TLIF at L4/L5 POD #1 patient is doing well, has been stable over night, will possible go home today. Plan: 1) Pain control as needed 2) D/C rodriguez 3) Continue to ambulate 3) Discharge Planning
[2018-10-25] MEDS ORDERED: buPROPion SR TAB.SR* 150 MG PO SCH (09:00)
[2018-10-25] MEDS ORDERED: Pantoprazole TAB * 40 MG TAB PO SCH (09:00)
[2018-10-25] MEDS ORDERED: Cetirizine* 10 MG TAB PO SCH (09:00)
[2018-10-25] MEDS: Cyclobenzaprine TAB* 10 MG PO PRN ×2 (09:23→13:57)
[2018-10-25 11:39] VITALS: BP 116/72
--- NOTE | 2018-10-26 09:24 | DS ---
Date of Admission: 10/24/18 Date of Discharge: 10/25/18 Admission Diagnosis: Spondylolisthesis at L4/L5 Discharge Diagnosis: Spondylolisthesis at L4/L5 Place of discharge: home Disposition on Discharge: Good Hospital Course: 43 y/o female with complaint of axial low back pain with right lower extremity radicular pain. Patient had attempted conservative therapy with no benefit and felt pain was progressing. On imaging patient had subluxation at L4/L5, which shifted with flexion and extension movement. She was offered surgical intervention to correct this issue. Patient underwent a TLIF at L4/L5 with right side decompression on 10/24/[address] Pritchard, she tolerated the procedure well. After surgery she discharged to short stay unit for a observation period. Post op patient reported that her radicular pain had resolved, her vitals were stable and pain well controlled with medication. She denied nausea, vomiting, and headaches. She was able to void, ambulate independently and tolerated food and liquids by mouth. At time of discharge she was given post op instructions, and has an established follow up appointment date. Patient was also discharged home with muscle relaxers.
[2018-10-27] MEDS ORDERED: Scopolamine PATCH Remove* 1 NOTE MISC PATCH OFF SCH (18:43)
== END 2018-10-25 14:10 | disposition home or self-care (01) | DRG 304 ==
LOC: AA 05:51 → SSU 11:49
PROVIDERS: ADMIT Neurological Surgery; ATTEND Neurological Surgery
PROC: 0SB20ZZ Excision of Lumbar Vertebral Disc, Open Approach (ICD-10-PCS; 2018-10-24)
PROC: 0QB30ZZ Excision of Left Pelvic Bone, Open Approach (ICD-10-PCS; 2018-10-24)
PROC: 4A11X4G Monitoring of Peripheral Nervous Electrical Activity, Intraoperative, External Approach (ICD-10-PCS; 2018-10-24)
PROC: 8E0WXBZ Computer Assisted Procedure of Trunk Region (ICD-10-PCS; 2018-10-24)
PROC: 0SG00AJ Fusion of Lumbar Vertebral Joint with Interbody Fusion Device, Posterior Approach, Anterior Column, Open Approach (ICD-10-PCS; principal; 2018-10-24 07:30)
DX: M51.16 Intervertebral disc disorders with radiculopathy, lumbar region (principal); Z68.41 Body mass index [BMI] 40.0-44.9, adult; M43.16 Spondylolisthesis, lumbar region; I10 Essential (primary) hypertension; F43.21 Adjustment disorder with depressed mood; E66.01 Morbid (severe) obesity due to excess calories; Z83.3 Family history of diabetes mellitus; E03.9 Hypothyroidism, unspecified; K21.9 Gastro-esophageal reflux disease without esophagitis; F32.9 Major depressive disorder, single episode, unspecified; Z88.5 Allergy status to narcotic agent; Z80.1 Family history of malignant neoplasm of trachea, bronchus and lung; Z80.3 Family history of malignant neoplasm of breast; Z88.8 Allergy status to other drugs, medicaments and biological substances; Z80.8 Family history of malignant neoplasm of other organs or systems; Z72.89 Other problems related to lifestyle
CPT/HCPCS: 36415; 72100; 76000; 80048; 81025; 85027; A9270-GY; J0330; J0690; J1100; J1170; J1885; J2001; J2250; J2405; J2704; J2765; J3010